=== PATIENT | female | born 1985 | race Caucasian/White ===

== ENCOUNTER 2017-11-16 22:35 | Inpatient (IN) | payer OTHER ==
[~2017-11-16] VITALS: Ht 162.6 cm; Wt 103.9 kg
[~2017-11-16 22:35] MED LIST: BUPIVACAINE /PF 0.5% 30 ML VIAL INJ ONE; LIDOCAINE PF 1% 30ML(POUR BTL) INJ ONE; LR 1,000 ML IV.SOLN IV ONE; MIDAZOLAM HCL 5 MG/5 ML VIAL IVP ONE; NS IRRIG SOLN 1000 ML IR ONE; PROPOFOL 200MG/ 20ML VIAL (DIPRIVAN) IV ONE; SEVOFLURANE 15 MIN GAS INH ONE; TEMAZEPAM 15 MG CAPSULE PO PRN; fentaNYL CITRATE/PF 100 MCG/2 ML AMP IVP ONE
[2017-11-16] MEDS ORDERED: NALBUPHINE HCL 10 MG/ML AMP ONE (22:59)
[2017-11-16] MEDS ORDERED: AMPICILLIN SODIUM 2 GM VIAL ONE (23:00)
[2017-11-16] MEDS ORDERED: OXYTOCIN/0.9 % SODIUM CHLORIDE 0 ML IV ONE (23:06)
[2017-11-16] MEDS ORDERED: OXYTOCIN/0.9 % SODIUM CHLORIDE 1,000 ML IV ONE ×2 (23:09→23:19)
[2017-11-16] MEDS ORDERED: LR 1,000 ML IV SCH (23:12)
[2017-11-16] MEDS ORDERED: OXYTOCIN/0.9 % SODIUM CHLORIDE 1,000 ML IV SCH (23:12)
[2017-11-16] MEDS ORDERED: NALBUPHINE HCL 10 MG/ML AMP IVP PRN (23:15)
[2017-11-16] MEDS ORDERED: TERBUTALINE SULFATE 1 MG/ML VIAL SUBCUT ONE (23:15)
[2017-11-16] MEDS ORDERED: AMPICILLIN SODIUM 2 GM in NS 100 ML IV ONE (23:15)
[2017-11-16] MEDS ORDERED: DOCUSATE SODIUM 100 MG CAPSULE PO PRN (23:30)
[2017-11-16] MEDS ORDERED: DERMOPLAST SPRAY TP PRN (23:30)
[2017-11-16] MEDS ORDERED: HYDROcodone/ACETAMIN 5-325 MG TAB (NORCO/ VICODIN) PO PRN (23:30)
[2017-11-16] MEDS ORDERED: HYDROCORTISONE 0.5%, 28.35 GM TOPICAL CREAM TP PRN (23:30)
[2017-11-16] MEDS ORDERED: ANUSOL 1 EA SUPP.RECT (PREPARATION H) RC PRN (23:30)
[2017-11-16] MEDS ORDERED: METHYLERGONOVINE MALEATE 0.2 MG TABLET PO PRN (23:30)
[2017-11-16] MEDS ORDERED: WITCH HAZEL LEAF 1 MED.PAD MED.PAD TP PRN (23:30)
[2017-11-16] MEDS ORDERED: SENNOSIDES/DOCUSATE SODIUM 1 TAB TABLET(SENOKOT-S) PO PRN (23:30)
[2017-11-16] MEDS ORDERED: LANOLIN 7 GM OINT. TP PRN (23:30)
[2017-11-16 23:39] LABS: BASOPHILS % (AUTO) 0.2 % (0.0-2.0); EOSINOPHILS # (AUTO) 0.1 K/uL (0.0-0.4); EOSINOPHILS % (AUTO) 0.8 % (0.0-4.0); HEMATOCRIT 35.9 % (36-48); HEMOGLOBIN 12.5 g/dL (12.0-16.0); LYMPHOCYTES # (AUTO) 2.1 K/uL (1.0-5.5); LYMPHOCYTES % (AUTO) 14.5 % (20.5-51.5); MEAN CORPUSCULAR HEMOGLOBIN 32 pg (27-31); MEAN CORPUSCULAR HGB CONC 35 % (32-36); MEAN CORPUSCULAR VOLUME 90 fL (79.0-98.0); MONOCYTES # (AUTO) 0.8 K/uL (0.0-1.0); MONOCYTES % (AUTO) 5.4 % (1.7-9.3); NEUTROPHILS # (AUTO) 11.6 K/uL (1.8-7.7); NEUTROPHILS % (AUTO) 79.1 % (40.0-70.0); PLATELET COUNT (AUTO) 224 K/uL (130-430); RED BLOOD CELL COUNT(AUTO) 3.98 MIL/uL (4.2-6.2); RED CELL DISTRIBUTION WIDTH 13.1 % (9.0-15.0); WHITE BLOOD COUNT (AUTO) 14.6 K/uL (4.8-10.8)
[2017-11-17] MEDS ORDERED: OXYTOCIN/0.9 % SODIUM CHLORIDE 1,000 ML IV ONE ×2 (00:07)
[2017-11-17] MEDS ORDERED: OXYTOCIN/0.9 % SODIUM CHLORIDE 1,000 ML IV SCH (00:07)
[2017-11-17] MEDS ORDERED: DOCUSATE SODIUM 100 MG CAPSULE PO PRN (00:15)
[2017-11-17] MEDS ORDERED: DERMOPLAST SPRAY TP PRN (00:15)
[2017-11-17] MEDS ORDERED: ANUSOL 1 EA SUPP.RECT (PREPARATION H) RC PRN (00:15)
[2017-11-17] MEDS ORDERED: HYDROCORTISONE 0.5%, 28.35 GM TOPICAL CREAM TP PRN (00:15)
[2017-11-17] MEDS ORDERED: SENNOSIDES/DOCUSATE SODIUM 1 TAB TABLET(SENOKOT-S) PO PRN (00:15)
[2017-11-17] MEDS ORDERED: OXYTOCIN 10 UNIT/ML VIAL ONE (03:12)
[2017-11-17] MEDS ORDERED: OXYTOCIN 10 UNIT/ML VIAL IM ONE (03:45)
[2017-11-17 03:47] VITALS: BP_SYST 138
[2017-11-17] MEDS ORDERED: IBUPROFEN 600 MG TABLET PO SCH (06:00)
[2017-11-17 07:34] LABS: BASOPHILS % (AUTO) 0.2 % (0.0-2.0); EOSINOPHILS % (AUTO) 0.2 % (0.0-4.0); HEMATOCRIT 32.5 % (36-48); HEMOGLOBIN 10.9 g/dL (12.0-16.0); LYMPHOCYTES # (AUTO) 1.4 K/uL (1.0-5.5); LYMPHOCYTES % (AUTO) 7.8 % (20.5-51.5); MEAN CORPUSCULAR HEMOGLOBIN 31 pg (27-31); MEAN CORPUSCULAR HGB CONC 34 % (32-36); MEAN CORPUSCULAR VOLUME 92 fL (79.0-98.0); MONOCYTES # (AUTO) 0.7 K/uL (0.0-1.0); NEUTROPHILS # (AUTO) 16.4 K/uL (1.8-7.7); PLATELET COUNT (AUTO) 214 K/uL (130-430); RED BLOOD CELL COUNT(AUTO) 3.55 MIL/uL (4.2-6.2); RED CELL DISTRIBUTION WIDTH 13.1 % (9.0-15.0); WHITE BLOOD COUNT (AUTO) 18.5 K/uL (4.8-10.8)
[2017-11-17 08:16] LABS: NEUTROPHILS % (AUTO) 87.8 % (40.0-70.0)
[2017-11-17] MEDS ORDERED: LR 1,000 ML IV SCH (09:07)
[2017-11-17] MEDS ORDERED: MEPERIDINE HCL/PF 50 MG/ML AMP IM PRN (09:15)
[2017-11-17] MEDS ORDERED: ONDANSETRON HCL 4 MG/2 ML VIAL IVP PRN ×2 (09:15→09:45)
[2017-11-17] MEDS ORDERED: IBUPROFEN 800 MG TABLET PO PRN (09:15)
[2017-11-17] MEDS ORDERED: OXYCODONE/ACETAMINOPHEN 5-325 TABLET PO PRN (09:15)
[2017-11-17] MEDS ORDERED: KETOROLAC TROMETHAMINE 30 MG VIAL IVP PRN (09:45)
[2017-11-17] MEDS ORDERED: fentaNYL CITRATE/PF 100 MCG/2 ML AMP IVP PRN ×2 (09:45)
[2017-11-17] MEDS ORDERED: CEFAZOLIN 2 GM IVPB PREMIX 50 ML IV SCH (10:00)
[2017-11-17 10:05] VITALS: BP_SYST 123
[2017-11-17] MEDS ORDERED: KETOROLAC TROMETHAMINE 30 MG VIAL ONE (10:20)
[2017-11-17] MEDS ORDERED: fentaNYL CITRATE/PF 100 MCG/2 ML AMP ONE (10:49)
[2017-11-17] MEDS: HYDROcodone/ACETAMIN 5-325 MG TAB (NORCO/ VICODIN) PO PRN ×2 (13:39→16:44)
[2017-11-17] MEDS: IBUPROFEN 800 MG TABLET PO PRN (17:20)
[2017-11-17] MEDS ORDERED: TEMAZEPAM 15 MG CAPSULE PO PRN (21:00)
[2017-11-18] MEDS: IBUPROFEN 800 MG TABLET PO PRN ×3 (00:40→12:50)
== END 2017-11-18 13:29 | disposition home or self-care (01) | DRG 767 ==
LOC: SPU 22:35
PROVIDERS: ADMIT Specialist; ATTEND Specialist
PROC: 10E0XZZ Delivery of Products of Conception, External Approach (ICD-10-PCS; 2017-11-16)
PROC: 0HQ9XZZ Repair Perineum Skin, External Approach (ICD-10-PCS; 2017-11-16)
PROC: 0UB70ZZ Excision of Bilateral Fallopian Tubes, Open Approach (ICD-10-PCS; principal; 2017-11-17 09:00)
DX: O99.824 Streptococcus B carrier state complicating childbirth (principal); O70.0 First degree perineal laceration during delivery; Z37.0 Single live birth; Z30.2 Encounter for sterilization; Z3A.40 40 weeks gestation of pregnancy
CPT/HCPCS: 36415; 85025; 86592; 86886; 86900; 86901; 88302; J0290; J0690; J1885; J2001; J2250; J2300; J2590; J2704; J3010; J3490; J7120